=== PATIENT | female | born 1975 | race Caucasian/White ===

== ENCOUNTER 2021-09-11 15:46 | Emergency (ER) | payer BC, SELFPAY ==
--- NOTE | ~2021-09-11 | XR_ITS ---
EXAMINATION: XR wrist LT min 3V DATE: 09/11/2021 16:33 INDICATION: Left wrist pain post fall TECHNIQUE: Posteroanterior, oblique and lateral views of the left wrist were obtained. COMPARISON: none FINDINGS: Transverse metaphyseal fracture of the distal left radius with dorsal predominant impaction resulting in some degree dorsal tilt of the distal articular surface. Suggestion of extension of a nondisplace d fracture plane to the articular surface at the lunate fossa. No evident fracture gap or incongruity at the articular surface. No other fractures identified. Normal alignment and joint space at the vis ualized left hand. Prominent soft tissue swelling about the wrist and mid to distal forearm. IMPRESSION: 1. Nondisplaced dorsally impacted and potentially intra-articular fracture of the distal left radius. Reviewed, dictated and finalized at location . E HANGER IMPRESSION: 1. Nondisplaced dorsally impacted and potentially intra-articular fracture of t he distal left radius.
--- NOTE | 2021-09-11 16:15 | ED.UPPEXIN ---
HPI - Extremity Injury (Upper) General Chief Complaint: Extremity Injury, Upper Stated Complaint: lt wrist injury Time Seen by Provider: 09/11/21 16:15 Source: patient and RN notes reviewed History of Present Illness HPI narrative: Patient is a 46-year-old female who presents the urgent care with complaints of left wrist pain, swelling. Patient states that she fell off her daughter's hover board yesterday at around 11:30 AM. Patient states she believes she landed on the left wrist. Patient is right-hand dominant. States that she has been taking ibuprofen and using ice for pain. Patient is unable to use the left hand. No other acute complaints. Patient is in visible pain otherwise no acute distress. Patient read the plan of care. Some parts of this dictation were generated by voice recognition software and may contain typographical and/or grammatical inaccuracies. Related Data Home Medications Medication Instructions Recorded Confirmed norethindrone-e.estradiol-iron 1 tablet DAILY 09/11/21 09/11/21 [Aurovela Fe 1-20 (28)] Allergies Allergy/AdvReac Type Severity Reaction Status Date / Time No Known Allergies Allergy Verified 09/11/21 16:32 Review of Systems Review of Systems: CONSTITUTIONAL: Denies fever, chills, or sweats. EYES: Denies visual changes, redness, or discharge. ENT: Denies rhinorrhea, congestion, sore throat, or otalgia. CARDIOVASCULAR: Denies chest pain, palpitations, or edema. RESPIRATORY: Denies cough or dyspnea. GASTROINTESTINAL: Denies abdominal pain, nausea, vomiting, or diarrhea. GENITOURINARY: Denies dysuria or hematuria. SKIN: Denies rash or itching. MUSCULOSKELETAL: Reports of left wrist pain and swelling due to fall NEUROLOGIC: Denies headache, numbness, or weakness. All other systems reviewed are negative, except as documented in HPI. PMFSH Comments At the time of my signature, I reviewed and agree with the nursing past medical, surgical, social, and family history. There is no relevant family history pertinent to the patient complaint. Exam Narrative: GENERAL: This is a well-nourished, well-developed patient, in no apparent distress. HEAD: normocephalic, atraumatic. EYES: PERRL. Sclera clear/white. Vision is grossly intact. EARS: External ears normal NOSE: External nose normal with no obvious nasal discharge, nares without redness, no rhinorrhea. THROAT: Mucous membranes moist NECK: Neck supple CARDIOVASCULAR: Regular rate and rhythm without murmurs, gallops, or rubs. RESPIRATORY: Clear to auscultation. Breath sounds equal bilaterally. No wheezes, rales, or rhonchi. SKIN: warm, intact with no suspicious lesions or rash, good texture and turgor. NEURO: awake, alert, and oriented to person, place and time. There were no obvious focal neurologic abnormalities. EXTREMITIES: Moderate edema and ecchymosis noted to the left wrist with obvious deformity and moderate swelling over the left radius. Range of motion not tested due to pain. Positive strong left radial pulse with capillary refill less than 2 seconds. Course Vital Signs Vital signs: Vital Signs Temperature 99.1 F 09/11/21 16:24 Pulse Rate 96 09/11/21 16:24 Respiratory Rate 18 09/11/21 16:24 Blood Pressure 148/85 H 09/11/21 16:24 Pulse Oximetry 99 09/11/21 16:24 Temperature 99.1 F 09/11/21 16:24 Pulse Rate 96 09/11/21 16:24 Respiratory Rate 18 09/11/21 16:24 Blood Pressure 148/85 H 09/11/21 16:24 Pulse Oximetry 99 09/11/21 16:24 Reviewed-patient is informed that they may have pre-hypertension or hypertension based on a blood pressure reading in the department. I recommend the patient call the primary care provider listed on their discharge instructions or a physician of their choice this week to arrange follow-up for further evaluation of possible pre-hypertension or hypertension. Procedures Orthopedic Splinting/Casting Injury #1: Side: left Upper Extremity Injury Locati
[2021-09-11 16:24] VITALS: BP 148/85; PULSE 96; RESP 18; TEMP 37.3; O2SAT 99
== END 2021-09-11 17:02 | disposition home or self-care (01) ==
PROVIDERS: Emergency Provider Nurse Practitioner Family
DX: S52.502A Unspecified fracture of the lower end of left radius, initial encounter for closed fracture (principal); V00.848A Other accident with standing micro-mobility pedestrian conveyance, initial encounter
CPT/HCPCS: 29125; 73110; 99204; G0463

== ENCOUNTER 2021-09-23 01:10 | Day surgery (SDC) | payer BC, SELFPAY ==
[2021-09-14 15:38] VITALS: BMI 21.9
--- NOTE | 2021-09-14 15:46 | PC.NURSE ---
Addendum entered by Nicole Vang RN 09/19/21 10:31: PT TO ARRIVE AT 1100 ON 09/23/21 FOR OR AT 1300. Original Note: Report to the Outpatient Waiting Room, entrance under the green pavilion located off [facility], at time 1000 on date 09/19/21. OR Time: 1200. - You will be asked a series of questions to screen for COVID 19 for your protection. - A mask is required within the hospital. - No visitors are allowed at this time. Preoperative COVID Testing Requirements: No COVID Test needed if: (proof is required; if not received patient will have Rapid Test prior to entry) - Patient has received COVID Vaccine at least 14 days prior to procedure date or - Patient has positive COVID test result within last 90 days of surgery date. COVID Test needed if above criteria is not met Patients may have clear liquids (water, carbonated beverages, clear teas, apple juice) until 3 hours prior to surgery with a maximum of 20 ounces. - No food from midnight until time of surgery Take the following medications with a SIP of water the morning of surgery: CONTROL, PAIN PILL (IF NEEDED) Medications to discontinue per physician: N/A Date to take last dose: N/A Please no make-up, nail greenlandic, hairspray, perfume, deodorant, or body powder the day of surgery. No jewelry (including any body piercings) or valuables the day of surgery, leave them at home. Please take a shower or bath the night before, or the morning of, surgery with an antibacterial soap. Wear comfortable, loose fitting clothing. - Jewelry must be removed prior to entering the operating room. Rings and piercings that are not removed may be cut off. - The hospital will not accept responsibility for valuables. - Please leave all valuables, including medications, at home the day of surgery. If you are going home after surgery, a licensed hearse driver must drive you home. - NO public transportation without another adult. - We recommend that an adult stay with you for 24 hours following discharge. - We also recommend that you do not drive, make important decision, drink alcoholic beverages, or take any drugs that were not prescribed by your health care provider for at least 24 hours after your discharge time. Follow any additional instructions given to you from your surgeon. Telephone instructions given to CASSANDRA CABRERA and asked if any additional questions and then verbalized understanding. Patient advised to call surgeon office or pre surgery nurse liaison [phone] if any additional questions.
--- NOTE | 2021-09-19 10:29 | PC.NURSE ---
Pt denies any medication or health history changes, except Covid positive, since initial interview. History updated with Covid date/symptoms. New instructions reviewed with pt. Pt denies any questions at this time.
--- NOTE | ~2021-09-23 | XR_ITS ---
EXAMINATION: XR surgery orthopedic DATE: 09/23/2021 14:21 INDICATION: ORIF left wrist fracture TECHNIQUE: 3 fluoroscopic images of the left wrist were obtained during procedure performed by Dr. Ryan thompson. Radiologist was not present for the imaging or procedure. The amount of fluoroscopy time used during this procedure was 1.1 minutes. COMPARISON: None. FINDINGS: Near-anatomic alignment post volar T plate and screw fixation of a distal left radial fracture which is in near-anatomic alignment. Expected small amount of gas in the left wrist joint and surrounding s oft tissues. Joint spaces are normal. IMPRESSION: 1. Expected appearance post volar T plate and screw fixation of a distal left radial fracture now in near-anatomic alignment. Reviewed, dictated and finalized at location B. CAST PRODUCER IMPRESSION: 1. Expected appearance post volar T plate and screw fixation of a distal left r adial fracture now in near-anatomic alignment.
--- NOTE | 2021-09-23 11:29 | P.PNAN_ITS ---
Anes - Initial Pre Proc Eval Procedure: Operation Date: 09/23/21 13:00 Proposed Procedures p Open Reduction Internal Fixation Left Wrist - Ousmane Negrete MD Date/Time: 09/23/21 11:29 Surgeon: Ousmane Negrete MD Pre Op Diagnosis: Left Wrist Fracture Patient Data Age: 46 Gender: F Height: 1.63 m Weight: 58.06 kg Allergies Allergy/AdvReac Type Severity Reaction Status Date / Time No Known Allergies Allergy Verified 09/23/21 12:18 Home Medications Medication Instructions Recorded Confirmed Type hydrocodone-acetaminophen 1 tablet PO Q4H PRN #20 tablet 09/11/21 09/19/21 Rx norethindrone-e.estradiol-iron 1 tablet DAILY 09/11/21 09/19/21 History [Aurovela Fe 1-20 (28)] Patient hx anesthesia problems: none Family hx anesthesia problems: none Results Review: All pre-operative results and documents have been reviewed as part of the pre-operative evaluation. [facility] Past Medical History Medical History (Updated 09/23/21 @ 11:30 by Chuy Schmid DO) COVID-19 09/18/21 Social History Social History Smoking status: Never smoker Alcohol intake: current Drinks per week: 5 Substance use: never Substance use type: does not use Living arrangements: with family Spiritual care concerns: No Anes - Eval Final PreProcedure Day of Procedure 09/23/21 11:29 Patient weight: normal Heart: regular rate and rhythm Lungs: clear to auscultation and normal air movement Airway: Mallampati scale class II Neurological: alert and oriented Last oral intake: >/= 8 hours ASA classification: II Emergent: no Anesthetic plan: proceed Anesthesia type and monitoring: general LMA and standard monitoring Results Review: All pre-operative results and documents have been reviewed as part of the pre-operative evaluation. Informed Consent: The patient's anesthetic plan and its attendant risks and benefits were discussed with the patient/family/POA. Questions were solicited and answers provided to the satisfaction of the patient/family/POA.
--- NOTE | 2021-09-23 11:30 | WPDANESPNB ---
Anes - Peripheral Nerve Block Date/Time: 09/23/21 11:30 I have discussed with the patient/family/POA the placement of a peripheral nerve block for post-operative pain management, including associated risks, benefits, complications, and side effects. Alternative methods of post-operative analgesia were detailed. Questions were solicited and answers provided to the satisfaction of the patient/family/POA. Time-Out: A pre-procedural Time-Out was completed immediately before starting the procedure and confirmed: Patient Identification, Site, Procedure, Patient Position and the Availability of Requisite Equipment. Clinical Indications: Acute post-operative pain management requested by the operative surgeon. Nerve Block Insertion Note Anes-nerve block: supraclavicular left Patient position: supine Skin prep: chlorhexidine Needle: 22 gauge, stimulating, insulated echogenic needle. Needle length: 50 mm Technique: ultrasound Injectate: bupivacaine 0.5% with epi 5 mcg/ml (30cc - no epi) Observations: tolerated well Complications: none Procedure start time:: 1303 Procedure end time:: 1307
[2021-09-23] MEDS: ACETAMINOPHEN 500 MG TABLET 1000 MG PO (12:19)
[2021-09-23] MEDS: LACTATED RINGERS 1,000 ML 30 ML IV CONT ×2 (12:41→14:22)
[2021-09-23] MEDS: KETOROLAC 15 MG/ML VIAL (*BKC) IV PUSH (12:42)
[2021-09-23 12:44] VITALS: BP 135/79; PULSE 71; RESP 16; O2SAT 99
--- NOTE | 2021-09-23 13:09 | WPDHPUPDATE1 ---
History and Physical Update Update Date/Time: 09/23/21 13:09 History and Physical has been reviewed, including an updated exam of the patient. There are NO changes in the patient's condition. Risks, benefits, and alternatives have been discussed and questions answered. Patient agrees to proceed with procedure. The procedure is a Left Distal Radius Open Reduction internal fixation with a plate and screws. She agrees to proceed.
[2021-09-23] MEDS: ceFAZolin 2 GM/D5W 50 ML 2 GM/50 ML BAG IVPB (13:12)
[2021-09-23 14:22] VITALS: BP 128/86; PULSE 96; RESP 12; TEMP 36.1; O2SAT 100
[2021-09-23 14:35] VITALS: BP 125/71; PULSE 72; RESP 12; O2SAT 99
--- NOTE | 2021-09-23 14:37 | W.PM.PROC2 ---
Procedure Note - Detailed Date of Procedure 09/23/21 Pre-op Diagnosis Left Distal Radius Fracture greater the 3 parts intra-articular unstable Post-op Diagnosis same Procedure Performed 1. Left Distal Radius Fracture greater the 3 parts intra-articular unstable - Open Reduction with Internal Fixation with Locked Volar Plate 2. Volar Short Arm Splint Application Surgeon Ousmane Negrete MD Anesthesia regional Indications Left Distal Radius Fracture greater the 3 parts intra-articular unstable Findings Left Distal Radius Fracture greater the 3 parts intra-articular unstable Description of Procedure The patient tested positive for Covid-19 as part of preoperative testing. Her surgery was delayed by 5 days due to this testing. The patient sustained the injury 09/10/2021. The time from injury was 13 days. Prior to surgery I explained to the patient that I may need to perform additional dissection in order to take down any bone healing that may have occured since the time of injury. This may result in more pain and swelling after the procedure. She understood and was willing to proceed. The risks benefits, alternatives and complications were discussed with the patient in a preoperative visit in my office. She agreed to proceed. Risks include but are not limited to, infection, nerve or blood vessel injury, possible plate irritation requiring a second procedure to remove the plate, post traumatice wrist arthritis, and she agreed to proceed. The alternative is to treat this fracture with cast immobilization. This will not have the surgical risks. However, the risk of non-surgical fracture care are malunion, resulting in a higher probability of post-traumatic arthritis. Patient was brought to the OR placed in the supine position. The patient underwent a regional block by anesthesia. The left upper extremity was then prepped and draped in the standard sterile fashion. A timeout was performed prior to incision. IV Ancef was administered (2grams) within 1 hour of incision. Touriquette was elevated to 220mm Mercury. Volar incision was made. Disection carried down to identifiy the FCR. Once the FCR was identified, the FCR sheath was incised. The FCR was retracted ulnar and the radial artery was retracted radial and protected during the entire procedure. The distal radial fracture site was identified. Open reduction was performed with traction and volar-radial force. Preliminary fixation was performed with a retrograde guide wire from the Radial Styloid into the Radial Shaft. Radial Height, Radial Inclination, and Volar Tilt were restored and verified with live fluoroscopy. A narrow, short volar plate was then position over the distal radius with guide 2 guide wires for provisional positioning. Position was verified with live fluoroscopy. Multiple pegs placed distally and 2 shaft screws placed. Fluoroscopy verification of all screws being extra-articular and without violation of distal radial cortex distal to the fracture site. The incision was then irrigated. The skin was closed using a dermal 3-0 monocryl suture and then Glue to the skin. Volar wrist splint was then applied with Fiberglass at the end of the case. Patient was then transfered to the recovery room in stable condition. Estimated Blood Loss 10.00 Tourniquet Time 45 Drains No Packing No Pathology none sent Complications None Condition stable Disposition PACU
[2021-09-23 14:45] VITALS: BP 138/71; PULSE 69; RESP 14; O2SAT 99
[2021-09-23 15:00] VITALS: BP 138/72; PULSE 64; RESP 20; O2SAT 100
[2021-09-23 15:15] VITALS: BP 128/76; PULSE 64; RESP 20
--- NOTE | 2021-09-23 15:59 | SUR.PHASEI ---
1548 - pt recovered in OR. pt stable. pt denies pain and discomfort. neuro assessment wnl. here. pt discharged home.
== END 2021-09-23 15:40 | disposition home or self-care (01) ==
PROVIDERS: Visit Provider Orthopaedic Surgery
PROC: (CPT 25575; principal; 2021-09-23 13:00)
DX: S52.572A Other intraarticular fracture of lower end of left radius, initial encounter for closed fracture (principal); V00.848A Other accident with standing micro-mobility pedestrian conveyance, initial encounter; G89.18 Other acute postprocedural pain; Z86.16 Personal history of COVID-19
CPT/HCPCS: 25609; 64415; A9270; C1713; J0330; J0690; J1885; J2250; J2270; J2405; J2704; J3010; J7120